=== PATIENT | female | born 2000 | race Two or more races ===

== ENCOUNTER 2021-09-24 23:56 | Emergency (ER) | payer SELFPAY ==
[~2021-09-24] VITALS: Ht 165.1 cm; Wt 89.5 kg
[2021-09-25 00:23] VITALS: BP 123/59
[2021-09-25] MEDS ORDERED: PROPARACAINE HCL 0.5% 15 ML OPHTHALMIC SOLUTION OS ONE (01:15)
[2021-09-25] MEDS ORDERED: FLUORESCEIN SODIUM 1 MG STRIP OS ONE (01:15)
[2021-09-25] MEDS ORDERED: DiphenhydrAMINE HCL 25 MG CAPSULE PO ONE (01:15)
== END 2021-09-25 03:19 | disposition home or self-care (01) ==
LOC: EMS 23:58
DX: H10.12 Acute atopic conjunctivitis, left eye (principal)
CPT/HCPCS: 99284; Z7502; Z7610